=== PATIENT | female | born 1945 | race Caucasian/White ===

== ENCOUNTER 2018-05-18 09:56 | Outpatient (CLI) | payer MEDICARE, OTHER ==
--- NOTE | 2018-05-18 11:23 | MMO ---
BILATERAL DIGITAL SCREENING MAMMOGRAMS: Date: 05/18/18 HISTORY: 72-year-old female presents for digital screening mammogram. COMPARISON: 12/08/15, 10/22/14, 08/08/13, 04/23/12. FINDINGS: This patient's mammogram was interpreted with the assistance of computer-aided detection. Scattered areas of fibroglandular density are noted bilaterally. Stable typically benign calcificatio ns. No direct or indirect evidence of malignancy. IMPRESSION: BIRADS 2: Benign Finding(s) Continue routine screening. POS: [place]
== END 2018-05-18 09:57 | disposition home or self-care (01) ==
LOC: SCSMAMMO 09:56
PROVIDERS: ATTEND Family Medicine
DX: Z12.31 Encounter for screening mammogram for malignant neoplasm of breast (principal)
CPT/HCPCS: 77067

== ENCOUNTER 2019-06-14 10:52 | Outpatient (CLI) | payer MEDICARE, OTHER ==
--- NOTE | 2019-06-14 11:18 | BD ---
EXAM: DEXA bone density examination HISTORY: 73-year-old postmenopausal female for screening COMPARISON: 08/30/2016 FINDINGS: L1--bone mineral density 0.812 g/sq cm; T score -1.6 L2--bone mineral density 1.007 g/sq cm; T score -0.2 L3--bone mineral density 0.985 g/sq cm; T score -0.9 L4--bone mineral density 0.938 g/sq cm; T score -1.1 Total L1-L4--bone mineral density 0.937 g/sq cm; T score -1.0 Left femoral neck--bone mineral density0.696; T score -1.4 Total proximal left femur--bone mineral density 0.845; T score -0.8 IMPRESSION: Osteopenia. When compared to the prior examination, the bone density in the hip has incre ased approximately 7% and the bone density in the spine is increased possibly 5%.
== END 2019-06-14 10:53 | disposition home or self-care (01) ==
LOC: BICMAMMO 10:52
PROVIDERS: ATTEND Family Medicine
DX: Z13.820 Encounter for screening for osteoporosis (principal); Z78.0 Asymptomatic menopausal state; M85.89 Other specified disorders of bone density and structure, multiple sites
CPT/HCPCS: 77080

== ENCOUNTER 2019-11-22 10:18 | Outpatient (CLI) | payer MEDICARE, OTHER ==
[2019-11-22 12:24] LABS: #Basophils 0.1 thou/uL (0.0-0.2); #Eosinphils 0.1 thou/uL (0.0-0.7); #Lymphocytes 1.7 thou/uL (1.20-3.40); #Monocytes 0.5 thou/uL (0.11-0.59); %Basophils 0.9 % (0.0-1.0); %Eosinophils 0.8 % (0.0-10.0); %Lymphocytes 27.2 % (21.0-51.0); %Monocytes 8.1 % (0.0-10.0); Hemoglobin 12.4 g/dL (12.0-16.0); Mean Corpuscular Hemoglobin 32.2 pg (27.0-31.0); Mean Platelet Volume 8.3 fL (7.4-10.4); Platelet Count 267 thou/uL (130-400); RBC Distribution Width 12.5 % (11.5-14.5); Red Blood Cell (RBC) Count 3.86 mill/uL (4.20-5.40); White Blood Cell (WBC) Count 6.3 thou/uL (4.8-10.8)
--- NOTE | 2019-11-22 12:24 | RAD ---
PA AND LATERAL VIEWS CHEST: Date: 11/22/2019 HISTORY: Shortness of breath. FINDINGS: Comparison made with exam of 03/13/2019. The heart size is normal. The aorta is tortuous. The lungs are well expanded without lobar consolidat ion, pneumothoraces, or pleural effusions. There are degenerative changes in the spine. IMPRESSION: Stable exam. No radiographic evidence of acute cardiopulmonary process. POS: [place]
[2019-11-22 12:51] LABS: CK (CPK) 63 U/L (29-168); CRP (Inflammatory) Less than 0.50 mg/dL (= or < 0.5)
[2019-11-22 17:17] LABS: ANA Symphony (Qualitative) Negative (Negative); ANA Symphony (Quantitative) 0.2 Ratio (< 0.7 Negative); CCP IgG Antibody 0.8 EliAU/mL (<7 Negative); EliA RAS New Method **** NEW METHOD ****; Rheumatoid Factor IgA Antibody 2.1 IU/mL (<14 Negative); Rheumatoid Factor IgM Antibody 1.4 IU/mL (<3.5 Negative); dsDNA IgG Antibody Less than 0.5 IU/mL (<10 Negative)
== END 2019-11-22 10:19 | disposition home or self-care (01) ==
LOC: SCSRAD 10:18
PROVIDERS: ATTEND Family Medicine
DX: M79.10 Myalgia, unspecified site (principal); R06.02 Shortness of breath
CPT/HCPCS: 36415; 71046; 82550; 83520; 85025; 85652; 86038; 86140; 86200; 86225; 87086

== ENCOUNTER 2020-07-29 09:21 | Outpatient (CLI) | payer MEDICARE, OTHER ==
--- NOTE | 2020-07-29 10:22 | MRI ---
MRI of thelumbar spine: 07/29/2020 COMPARISON:12/08/2015 HISTORY:Intervertebral disc disorder, radiculopathy, chronic back pain TECHNIQUE: Multiplanar multisequence MR imaging of thelumbar spine without contrast Findings:The sagittal STIR imaging demonstrates no focal area of osseous marrow edema. There is minimal anterolisthesis at the L4-5 level. Stable L4 hemangioma. Stable Schmorl's node infer ior endplate L2. On the basis of 5 lumbar type vertebral bodies, the conus medullaris terminates at the T12-L1 level. T12-L1: Intervertebral disc height and signal intensity within normal limits with no central canal or neural foraminal stenosis. L1-2: Intervertebral disc height and signal intensity within normal limits. Mild bilateral facet hype rtrophy with no significant central canal or neural foraminal stenosis. L2-3: There is disc space narrowing with disc desiccation and disc bulge. Mild bilateral facet hypert rophy. No significant central canal or neural foraminal stenosis. L3-4: There is disc space narrowing with disc desiccation and minimal disc bulge. There is an annular tear in the post foraminal region on the left with a very small left post foraminal disc protrusion abutting the ventral aspect of the left L3 nerve root. There is no significant central can al or neural foraminal stenosis. L4-5: There is disc space narrowing with disc desiccation and disc bulge. Bilateral facet hypertrophy and hypertrophy of the ligamentum flavum, left greater than right. There is mild/moderate central canal stenosis with no significant neural foraminal stenosis. L5-S1: Bilateral facet hypertrophy. Disc space narrowing and disc desiccation. No significant central canal or neural foraminal stenosis. 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 There is a small cyst in the posterior right renal midpole measuring 1.1 cm. Retroperitoneal structur es demonstrate no acute findings. No significant interval change when compared to the prior examination. IMPRESSION:Relatively stable lumbar spine degenerative change as detailed above, most prominent at th e L4-5 level.
--- NOTE | 2020-07-29 11:57 | RAD ---
LUMBAR SPINE SERIES 3 VIEWS WITH FLEXION AND EXTENSION: Date: 07/29/2020 HISTORY: Low back pain with bilateral lower extremity radiculopathy. FINDINGS: The vertebral bodies are normal in height. There is degenerative disc narrowing at L2-3, L3-4, and L4 -5 levels. There is limited motion on these flexion and extension views. There is no spondylolisthesi s or abnormal motion demonstrated. Degenerative facet changes and atherosclerosis are also noted. IMPRESSION: Arthritic changes of the spine as described above. POS: [place]
== END 2020-07-29 09:22 | disposition home or self-care (01) ==
LOC: SCSMRI 09:21
PROVIDERS: ATTEND Nurse Practitioner Family
DX: M51.16 Intervertebral disc disorders with radiculopathy, lumbar region (principal); M47.26 Other spondylosis with radiculopathy, lumbar region
CPT/HCPCS: 72100; 72148

== ENCOUNTER 2021-07-15 14:53 | Outpatient (CLI) | payer MEDICARE, OTHER | END 2021-07-15 14:54 | disposition home or self-care (01) | LOC: BICMAMMO 14:53 | PROVIDERS: ATTEND Family Medicine | DX: Z13.820 Encounter for screening for osteoporosis (principal); Z78.0 Asymptomatic menopausal state; M81.0 Age-related osteoporosis without current pathological fracture; M85.851 Other specified disorders of bone density and structure, right thigh; M85.852 Other specified disorders of bone density and structure, left thigh | CPT/HCPCS: 77080 ==

== ENCOUNTER 2021-07-20 11:11 | Outpatient (CLI) | payer MEDICARE, OTHER ==
[2021-07-20 13:18] LABS: Hemoglobin 11.8 g/dL (12.0-15.5); Mean Corpuscular HGB CONC 31.6 g/dL (32.0-36.0); Mean Corpuscular Hemoglobin 27.6 pg (27.0-33.0); Mean Corpuscular Volume 87.4 fl (81.6-98.3); Mean Platelet Volume 10.8 fl (7.4-10.4); Platelet Count 272 10x3/uL (150-450); RBC Distribution Width 14.1 % (11.5-14.5); Red Blood Cell (RBC) Count 4.27 10x6/uL (3.90-5.03); White Blood Cell (WBC) Count 5.9 10x3/uL (3.5-10.5)
[2021-07-20 13:22] LABS: Anion Gap 16 mmol/L (10-20); BUN (Urea Nitrogen) 13 mg/dL (9.8-20.1); Calc. Creatinine Clearance 0 mL/min (70-130); Calcium 9.4 mg/dL (7.8-10.44); Carbon Dioxide 22 mmol/L (23-31); Chloride 108 mmol/L (98-107); Glucose 69 mg/dL (83-110); Potassium 4.8 mmol/L (3.5-5.1); Sodium 141 mmol/L (136-145)
[2021-07-20 13:25] LABS: INR-International Normal Ratio 0.9; PTT 23.1 sec (22.0-33.0)
[2021-07-21 00:39] LABS: SARS-CoV-2 PCR by NAA Not Detected (NotDetected)
== END 2021-07-20 11:12 | disposition home or self-care (01) ==
LOC: LABBT 11:11
PROVIDERS: ATTEND Surgery
DX: Z01.818 Encounter for other preprocedural examination (principal); Z20.822 Contact with and (suspected) exposure to COVID-19
CPT/HCPCS: 80048; 85027; 85610; 85730; U0003; U0005; 93005; 93010

== ENCOUNTER 2021-07-23 06:12 | Observation (INO) | payer MEDICARE, OTHER ==
[2021-07-22 10:37] VITALS: BMI 26.6
[2021-07-23] MEDS ORDERED: PHENYLEPHRINE-NS 100 MCG/ML 10 ML SYRINGE ONE (06:33)
[2021-07-23] MEDS ORDERED: Fentanyl 250 MCG/5 ML VIAL ONE (06:33)
[2021-07-23] MEDS ORDERED: Thrombin 5000 UNITS/5 ML VIAL ONE (06:52)
[2021-07-23] MEDS ORDERED: Bacitracin Zinc Ointment 30 gm TUBE ONE (06:52)
[2021-07-23] MEDS ORDERED: Neomycin-Polymyxin 1 ML AMP ONE (06:52)
[2021-07-23] MEDS ORDERED: ceFAZolin 2 GM/DEX 5% 100 ML BAG ONE (07:28)
[2021-07-23] MEDS ORDERED: Glycopyrrolate 0.2 MG/ML 5 ML SYRINGE ONE (07:43)
[2021-07-23] MEDS ORDERED: Lidocaine 1% PF 5 ML VIAL ONE (07:43)
[2021-07-23] MEDS ORDERED: Rocuronium Bromide 10 MG/ML (10ML VIAL) ONE (07:43)
[2021-07-23] MEDS ORDERED: PROPOFOL 200 MG/20 ML VIAL ONE (07:43)
[2021-07-23] MEDS ORDERED: Dexamethasone 20 MG/5 ML VIAL ONE (07:43)
[2021-07-23] MEDS ORDERED: Ondansetron PF 4 MG/2 ML Vial ONE (07:43)
[2021-07-23] MEDS ORDERED: Promethazine HCl 25 MG/ML VIAL IVPB PRN (09:34)
[2021-07-23] MEDS ORDERED: Promethazine HCl 25 MG/ML VIAL IM PRN (09:34)
[2021-07-23] MEDS ORDERED: Ondansetron HCl/PF 4 MG/2 ML Vial IVP PRN (09:34)
[2021-07-23] MEDS ORDERED: Meperidine HCl/PF 25 MG/ML VIAL SLOW IVP PRN (09:34)
[2021-07-23] MEDS ORDERED: Acetaminophen 325 MG TAB PO PRN (09:57)
[2021-07-23] MEDS ORDERED: Acetaminophen/Codeine 30-300mg Tablet PO PRN (09:57)
[2021-07-23] MEDS ORDERED: traMADol HCl 50 MG TAB PO PRN (09:57)
[2021-07-23] MEDS ORDERED: Lidocaine 5% Patch TD PRN ×2 (10:04→14:51)
[2021-07-23] MEDS ORDERED: Non-Formulary Item 1 EACH (Ibandronate Sodium [Ibandronate Sodium] 150 MG Tablet) PO SCH (10:15)
[2021-07-23] MEDS ORDERED: Fentanyl 100 MCG/2 ML VIAL ONE ×2 (10:29→11:48)
[2021-07-23] MEDS: Sodium Chloride 0.9% 1,000 ML IV SCH ×2 (13:00→23:23)
[2021-07-23] MEDS: HYDROcodone/Acetaminophen 7.5/325 mg Tablet PO PRN (14:53)
[2021-07-23] MEDS: Morphine 4 MG/ML VIAL SLOW IVP PRN ×2 (15:52→18:56)
[2021-07-23] MEDS ORDERED: Cepastat Lozenges 1 LOZ PO PRN (16:31)
[2021-07-23] MEDS ORDERED: Chloraseptic Spray 180 ml Bottle PO PRN (16:32)
[2021-07-23] MEDS: Ondansetron PF 4 MG/2 ML Vial IVP PRN (16:46)
[2021-07-23] MEDS: ceFAZolin Sodium/D5W 2 GM in Premix Bag 1 BAG IVPB SCH ×2 (16:48→23:43)
[2021-07-23] MEDS ORDERED: Promethazine HCl 12.5 MG in Sodium Chloride 0.9% 50 ML IVPB PRN (17:17)
[2021-07-23] MEDS ORDERED: Amlodipine 5 MG TAB PO SCH (21:00)
[2021-07-23] MEDS: tiZANidine HCl 4 MG TAB PO PRN (22:27)
[2021-07-24] MEDS: HYDROcodone/Acetaminophen 7.5/325 mg Tablet PO PRN ×2 (06:35→16:12)
[2021-07-24] MEDS: Sodium Chloride 0.9% 1,000 ML IV SCH (09:17)
[2021-07-24] MEDS: tiZANidine HCl 4 MG TAB PO PRN (13:11)
[2021-07-24] MEDS: Ondansetron PF 4 MG/2 ML Vial IVP PRN (13:11)
[2021-07-24] MEDS ORDERED: Calcium Carbonate 500 MG ChewTAB PO SCH (13:45)
[2021-07-24 17:37] VITALS: BP 127/78; TEMP 97.4
[2021-07-26] MEDS ORDERED: FLU VACC QS2021-22(65YR UP)/PF 240 MCG/0.7 ML SYRINGE IM ONE (18:30)
== END 2021-07-24 17:25 | disposition home or self-care (01) ==
LOC: SDC 06:12 → SURG A 09:57
PROVIDERS: ADMIT Surgery; ATTEND Surgery
PROC: 01NB0ZZ Release Lumbar Nerve, Open Approach (ICD-10-PCS; principal; 2021-07-23)
DX: M48.062 Spinal stenosis, lumbar region with neurogenic claudication (principal); M54.16 Radiculopathy, lumbar region; I10 Essential (primary) hypertension; E78.5 Hyperlipidemia, unspecified; G47.30 Sleep apnea, unspecified; M81.0 Age-related osteoporosis without current pathological fracture; Z79.899 Other long term (current) drug therapy; Z98.84 Bariatric surgery status
CPT/HCPCS: 63047; 63048 ×2; 76000; 96365; 96367; 96375; 96376; 97110; 97116; G0378 ×2; J1100; J2270; J2405; J2550; J2704; J3010; J3370; J7050

== ENCOUNTER 2025-06-06 13:01 | Outpatient (CLI) | payer MEDICARE, OTHER | END 2025-06-06 13:02 | disposition home or self-care (01) | LOC: SCSBT 13:01 | PROVIDERS: ATTEND Family Medicine | DX: M81.0 Age-related osteoporosis without current pathological fracture (principal); M85.89 Other specified disorders of bone density and structure, multiple sites | CPT/HCPCS: 77080 ==